=== PATIENT | male | born 1930 | race Caucasian/White ===

== ENCOUNTER 2018-12-06 00:37 | Inpatient (IN) | payer MEDICARE, OTHER | END 2018-12-11 17:00 | disposition home or self-care (01) | LOC: ER 00:37 → ED HOLD 03:54 → PCU 3S 10:13 | DX: I50.21 Acute systolic (congestive) heart failure (principal); J18.9 Pneumonia, unspecified organism; N18.6 End stage renal disease; I13.2 Hypertensive heart and chronic kidney disease with heart failure and with stage 5 chronic kidney disease, or end stage renal disease ==